=== PATIENT | female | born 2000 | race Caucasian/White ===

== ENCOUNTER 2021-07-29 11:02 | Observation (INO) | payer OTHER ==
[~2021-07-29] VITALS: Ht 157.5 cm; Wt 60.0 kg
--- NOTE | 2021-07-29 11:15 | NUR ---
PATIENT TO ROOM VIA WHEELCHAIR AND PHYSICIAN NOTIFIED OF PATIENT STATUS
[2021-07-29 13:30] LABS: HEMATOCRIT 34.9 % (37.0-47.0); HEMOGLOBIN 11.6 g/dl (12.0-16.0); IMMATURE GRANULOCYTES 0.2 % (0.0-5.0); MEAN CORPUSCULAR HGB 27.2 pG CALC (26.0-32.0); MEAN CORPUSCULAR HGB CONC 33.2 g/dL CAL (32.0-36.0); NEUT# 20.28 thou/uL (2.00-7.15); RED BLOOD COUNT 4.26 mill/uL (4.20-5.60); RED CELL DISTRI WIDTH 14.9 % (11.5-15.5)
[2021-07-29 13:45] LABS: MEAN CELL VOLUME 81.9 fL CALC (80.0-100.0)
[2021-07-29 13:49] LABS: ALBUMIN 4.6 g/dL (3.2-5.0); ALKALINE PHOSPHATASE 73 u/l (38-126); ANION GAP 17 (6-22 (CALC)); BILIRUBIN, TOTAL 0.4 mg/dL (0.0-1.4); BUN 12 mg/dL (7-17); BUN/CREATININE RATIO 16 (12-20 (CALC)); CARBON DIOXIDE 20 mmol/l (22-30); CHLORIDE 105 mmol/l (95-108); CREATININE 0.8 mg/dL (0.5-1.0); GFR > 60 ML/MIN (>=60 (CALC)); GFR FOR AFR.AMER. > 60 ML/MIN (>=60 (CALC)); POTASSIUM 3.9 mmol/l (3.5-5.1); SGOT/AST 25 u/l (14-36); SODIUM 138 mmol/l (137-146)
[2021-07-29 15:09] LABS: URINE BILIRUBIN - DIPSTICK NEGATIVE (NEGATIVE); URINE BLOOD DIPSTICK LARGE (NEGATIVE); URINE COLOR YELLOW; URINE GLUCOSE - DIPSTICK 100 mg/dL (NEGATIVE); URINE KETONE >=80 mg/dL (NEGATIVE); URINE LEUK ESTERASE NEGATIVE (NEGATIVE); URINE PH 8.5 (4.5-8.0); URINE PROTEIN - DIPSTICK TRACE mg/dL (NEG-TRACE); URINE UROBILINOGEN - DIPSTICK 0.2 E.U./dL (0.2)
[2021-07-29 15:13] LABS: URINE NITRITE - DIPSTICK NEGATIVE (Negative)
[2021-07-29 15:29] LABS: URINE SQUAMOUS EPITHELIAL CELL FEW EPI/hpf (0-FEW); URINE WBC 0-2 WBC/hpf (0-5)
--- NOTE | 2021-07-29 18:45 | NUR ---
REPORT TO JOSE ANGEL ORTIZ
--- NOTE | 2021-07-29 19:00 | NUR ---
STABLE AWAITING TRANSFER TO /S
--- NOTE | 2021-07-29 20:00 | NUR ---
UNABLE TO GIVE REPORT, RN BUSY.
--- NOTE | 2021-07-29 20:30 | NUR ---
Admission Note Report Given to: [place] COTE Transported by: X Wheelchair Stretcher Transported with: X Nurse Transporter X Patent IV O2 Chemistry Teacher Location: ICU X [facility]
[2021-07-29 20:38] VITALS: BP 112/74
--- NOTE | 2021-07-29 20:38 | NUR ---
PT ARRIVED ON UNIT VIA W/C FROM THE ER, ESCORTED BY ER STAFF. PT TOLERATED TRANSFER TO UNIT. BREATHING EVEN AND UNLABORED. LUNGS CTA. ASSESSMENTS COMPLETED, PLEASE SEE DOCUMENTATION. IV SITE TO RAC, PT C/O PAIN TO SITE WHEN FLUSHED. NEW SITE PLACE TO RIGHT WRIST #[id number], NO COMPLAINTS VOICED. DENIES PAIN TO SITE. PT REPORTS MINIMAL PAIN TO RLQ. NO S/S OF DISTRESS NOTED. PT INSTRUCTED ON USE OF CALL SAHU TO ASK FOR ASSISTANCE. WILL MONITOR
--- NOTE | 2021-07-30 | NUR ---
PT RESTING QUIETLY. DENIES PAIN AT THIS TIME. BREATHING IS EVEN AND UNLABORED. NO S/S OF DISTRESS. PT GIVEN MIDNIGHT ZOSYN VIA NEW IV SITE, NO PROBLEMS NOTED. PT DENIES PAIN AT IV SITE. SAFETY PRECAUTIONS REMAIN IN PLACE, WILL MONITOR
[2021-07-30 04:00] VITALS: BP 92/53
--- NOTE | 2021-07-30 04:13 | NUR ---
PT RESTING IN BED WITH HER EYES CLOSED. NO COMPLAINTS VOICED. BREATHING IS EVEN AND UNLABORED. PT DENIES PAIN AT THIS TIME. SAFETY PRECAUTIONS I PLACE, WILL MONITOR
[2021-07-30 05:55] LABS: IMMATURE GRANULOCYTES 0.1 % (0.0-5.0); MEAN CELL VOLUME 85.3 fL CALC (80.0-100.0); MEAN CORPUSCULAR HGB 26.9 pG CALC (26.0-32.0); MEAN CORPUSCULAR HGB CONC 31.6 g/dL CAL (32.0-36.0); NEUT# 10.21 thou/uL (2.00-7.15); RED BLOOD COUNT 3.34 mill/uL (4.20-5.60); RED CELL DISTRI WIDTH 15.3 % (11.5-15.5)
[2021-07-30 06:04] LABS: HEMATOCRIT 28.5 % (37.0-47.0)
--- NOTE | 2021-07-30 07:25 | NUR ---
REPORT REC FROM Sydney JOSEPH LPN
--- NOTE | 2021-07-30 07:52 | NUR ---
DR MORA AT BEDSIDE DISCUSSING POC
--- NOTE | 2021-07-30 08:40 | NUR ---
PT SITTING IN BED. A&O X4. PT DENIES ANY PAIN AT THIS TIME. REPORTS IMPROVEMENT COMPARED TO YESTERDAY. IVF D/C PER PROVIDER ORDERS. PT TO BE ADVANCED TO A REGULAR DIET. CLEAR BREATH SOUNDS UPON AUSCULTATION. ACTIVE BOWEL SOUNDS X4 QUADRANTS. IV REMAINS HEALTHY AND PATENT. NO OTHER NEEDS AT THIS TIME. ASSESSMENT COMPLETED. DISCUSSED POC. CALL LIGHT WITHIN REACH.
[2021-07-30 12:00] VITALS: BP 89/57
--- NOTE | 2021-07-30 12:57 | NUR ---
PT C/O OF NAUSEA, VOMITING EPISODE X1. ZOFRAN IV GIVEN. PT TO BE MONITORED FOR POSS D/C LATER TODAY. PT DENIES ANY PAIN. NO OTHER NEEDS AT THIS TIME. CALL LIGHT WITHIN REACH.
--- NOTE | 2021-07-30 15:05 | NUR ---
Discharge instructions given. Patient verbalizes understanding of same. Discharged in stable condition via Ambulatory to Home with staff. All belongings sent with pt. Pt encouraged to advance diet slowly and follow up with Dr Marks if abd pain persists, or worsens. Pt encouraged to return also if symptoms do not improve.
== END 2021-07-30 15:05 | disposition home or self-care (01) | DRG 392 ==
LOC: ED 11:02 → ED-I 17:22 → ED 17:33 → MS2 17:34
PROVIDERS: Physician Assistant Surgical; ADMIT Surgery; ATTEND Surgery
DX: K52.9 Noninfective gastroenteritis and colitis, unspecified (principal); E87.2 Acidosis; Z20.822 Contact with and (suspected) exposure to COVID-19
CPT/HCPCS: G0378; Q9967

== ENCOUNTER 2022-06-23 16:09 | Emergency (ER) | payer OTHER ==
[~2022-06-23] VITALS: Ht 157.5 cm; Wt 65.9 kg
[2022-06-23 16:45] LABS: URINE BILIRUBIN - DIPSTICK NEGATIVE (NEGATIVE); URINE BLOOD DIPSTICK LARGE (NEGATIVE); URINE COLOR YELLOW; URINE GLUCOSE - DIPSTICK NEGATIVE (NEGATIVE); URINE KETONE >=80 mg/dL (NEGATIVE); URINE LEUK ESTERASE NEGATIVE (NEGATIVE); URINE PH 7.5 (4.5-8.0); URINE PROTEIN - DIPSTICK 30 mg/dL (NEG-TRACE); URINE SPECIFIC GRAVITY 1.015; URINE UROBILINOGEN - DIPSTICK 0.2 E.U./dL (0.2)
[2022-06-23 16:47] LABS: URINE NITRITE - DIPSTICK NEGATIVE (Negative)
[2022-06-23 16:54] LABS: IMMATURE GRANULOCYTES 0.2 % (0.0-5.0); MEAN CORPUSCULAR HGB 25.6 pG CALC (26.0-32.0); MEAN CORPUSCULAR HGB CONC 32.6 g/dL CAL (32.0-36.0); NEUT# 17.84 thou/uL (2.00-7.15); RED BLOOD COUNT 4.5 mill/uL (4.20-5.60); RED CELL DISTRI WIDTH 15.9 % (11.5-15.5)
[2022-06-23 16:54] LABS: URINE SQUAMOUS EPITHELIAL CELL FEW EPI/hpf (0-FEW)
[2022-06-23 16:56] LABS: HEMATOCRIT 35.3 % (37.0-47.0); HEMOGLOBIN 11.5 g/dl (12.0-16.0); MEAN CELL VOLUME 78.4 fL CALC (80.0-100.0)
[2022-06-23 17:19] LABS: ALKALINE PHOSPHATASE 81 u/l (38-126); ANION GAP 22 (6-22 (CALC)); BILIRUBIN, TOTAL 0.5 mg/dL (0.0-1.4); BUN 15 mg/dL (7-17); BUN/CREATININE RATIO 17 (12-20 (CALC)); CARBON DIOXIDE 19 mmol/l (22-30); CHLORIDE 108 mmol/l (95-108); CREATININE 0.9 mg/dL (0.5-1.0); GFR FOR AFR.AMER. > 60 ML/MIN (>=60 (CALC)); GFR OTHER RACES > 60 ML/MIN (>=60 (CALC)); LIPASE 49 u/l (23-300); SGOT/AST 26 u/l (14-36); SODIUM 144 mmol/l (137-146); TOTAL PROTEIN 8.9 g/dL (6.3-8.2)
[2022-06-23] MEDS ORDERED: ONDANSETRON4 MG PO (19:27)
[2022-06-23] MEDS ORDERED: AMOX/K CLAV875 M1 PO (19:27)
[2022-06-23 19:32] VITALS: BP 102/64
== END 2022-06-23 19:38 | disposition home or self-care (01) | DRG 392 ==
LOC: ED 16:09
PROVIDERS: Nurse Practitioner
DX: R10.31 Right lower quadrant pain (principal); R10.32 Left lower quadrant pain; R11.2 Nausea with vomiting, unspecified; D72.829 Elevated white blood cell count, unspecified
CPT/HCPCS: Q9967

== ENCOUNTER 2023-06-29 10:46 | Emergency (ER) | payer OTHER ==
[2023-06-29] VITALS (10 sets, daily range): BP systolic 99–129; BP diastolic 54–85
[~2023-06-29] VITALS: Ht 157.5 cm; Wt 73.6 kg
[~2023-06-29 10:46] MED LIST: AMOX/K CLAV875 M1 PO; ONDANSETRON4 MG PO
[2023-06-29 11:22] LABS: BASO% 0.3 % (0-3); HEMOGLOBIN 11.3 g/dl (12.0-16.0); IMMATURE GRANULOCYTES 0.1 % (0.0-5.0); LYMPH% 28.2 % (15-41); MEAN CELL VOLUME 78.6 fL CALC (80.0-100.0); MEAN CORPUSCULAR HGB 24.7 pG CALC (26.0-32.0); MEAN CORPUSCULAR HGB CONC 31.4 g/dL CAL (32.0-36.0); MONO% 6.7 % (2-13); NEUT# 4.68 thou/uL (2.00-7.15); NEUT% 63.7 % (42-76); RED BLOOD COUNT 4.58 mill/uL (4.20-5.60); RED CELL DISTRI WIDTH 16.6 % (11.5-15.5)
[2023-06-29] MEDS ORDERED: TRI LO MILI (11:44)
[2023-06-29 11:51] LABS: ALBUMIN 4.4 g/dL (3.2-5.0); ALKALINE PHOSPHATASE 79 u/l (38-126); ANION GAP 15 (6-22 (CALC)); BILIRUBIN, TOTAL 0.4 mg/dL (0.02-1.3); BUN 10 mg/dL (7-17); BUN/CREATININE RATIO 12 (12-20 (CALC)); CARBON DIOXIDE 22 mmol/l (22-30); CHLORIDE 107 mmol/l (95-108); CREATININE 0.9 mg/dL (0.5-1.0); GFR FOR AFR.AMER. > 60 ML/MIN (>=60 (CALC)); GFR OTHER RACES > 60 ML/MIN (>=60 (CALC)); POTASSIUM 3.9 mmol/l (3.5-5.1); SGOT/AST 27 u/l (14-36); SODIUM 139 mmol/l (137-146); TOTAL PROTEIN 7.8 g/dL (6.3-8.2)
[2023-06-29] MEDS ORDERED: ZOFRAN4 MG/TAB PO (13:17)
[2023-06-29] MEDS ORDERED: CIPROFLOXACN500 MG PO (13:17)
[2023-06-29] MEDS ORDERED: ZPAK PO (13:17)
[2023-06-29] MEDS ORDERED: METRONIDAZOLE500 MG PO (13:17)
== END 2023-06-29 13:56 | disposition home or self-care (01) | DRG 385 ==
LOC: ED 10:46
PROVIDERS: Family Medicine
DX: K50.111 Crohn's disease of large intestine with rectal bleeding (principal); J18.9 Pneumonia, unspecified organism
CPT/HCPCS: Q9967